=== PATIENT | female | born 1990 | race Caucasian/White ===

== ENCOUNTER → 2024-02-03 09:25 | Outpatient (REF) | payer OTHER, SELFPAY | LOC: PNTC 09:25 | PROVIDERS: ATTENDING PHYSICIAN Obstetrics & Gynecology | DX: O34.219 Maternal care for unspecified type scar from previous cesarean delivery (principal); Z87.59 Personal history of other complications of pregnancy, childbirth and the puerperium; O09.529 Supervision of elderly multigravida, unspecified trimester | CPT/HCPCS: 76801; 76813 ==

== ENCOUNTER → 2024-03-03 09:05 | Outpatient (REF) | payer OTHER, SELFPAY | LOC: PNTC 09:05 | PROVIDERS: ATTENDING PHYSICIAN Obstetrics & Gynecology | DX: O42.919 Preterm premature rupture of membranes, unspecified as to length of time between rupture and onset of labor, unspecified trimester (principal) | CPT/HCPCS: 76805; 76817; 93976 ==

== ENCOUNTER → 2024-03-31 09:14 | Outpatient (REF) | payer OTHER, SELFPAY | LOC: PNTC 09:14 | PROVIDERS: ATTENDING PHYSICIAN Obstetrics & Gynecology | DX: O34.219 Maternal care for unspecified type scar from previous cesarean delivery (principal); Z87.59 Personal history of other complications of pregnancy, childbirth and the puerperium; O09.529 Supervision of elderly multigravida, unspecified trimester; O34.218 Maternal care for other type scar from previous cesarean delivery | CPT/HCPCS: 76811; 76817; 93976 ==

== ENCOUNTER → 2024-04-28 07:03 | Outpatient (REF) | payer OTHER, SELFPAY | LOC: PNTC 07:03 | PROVIDERS: ATTENDING PHYSICIAN Obstetrics & Gynecology | DX: O42.919 Preterm premature rupture of membranes, unspecified as to length of time between rupture and onset of labor, unspecified trimester (principal); O09.529 Supervision of elderly multigravida, unspecified trimester; O09.519 Supervision of elderly primigravida, unspecified trimester | CPT/HCPCS: 76816; 76817 ==

== ENCOUNTER → 2024-05-26 06:53 | Outpatient (REF) | payer OTHER, SELFPAY | LOC: PNTC 06:53 | PROVIDERS: ATTENDING PHYSICIAN Obstetrics & Gynecology | DX: O09.529 Supervision of elderly multigravida, unspecified trimester (principal); O09.219 Supervision of pregnancy with history of pre-term labor, unspecified trimester | CPT/HCPCS: 76816 ==

== ENCOUNTER → 2024-06-25 08:27 | Outpatient (REF) | payer OTHER, SELFPAY ==
--- NOTE | 2024-06-24 14:12 | PN.DIAED06 ---
Meal Plan - Gestational
- Breakfast
Gestational Diabetes Meal Plan Name: 1800 calories
Breakfast - Total Carbohydrate (grams): 30
Breakfast - Starch Carbohydrate: 1
Breakfast - Fruit Carbohydrate: 0
Breakfast - Milk Carbohydrate: 1
Breakfast - Nonstarchy Vegetables: Yes
Breakfast - Meat/Protein: 1
Breakfast - Fat: 2
- Morning Snack
Morning Snack - Total Carbohydrate (grams): 30
Morning Snack - Starch Carbohydrate: 1
Morning Snack - Fruit Carbohydrate: 0
Morning Snack - Milk Carbohydrate: 1
Morning Snack - Nonstarchy Vegetables: Yes
Morning Snack - Meat/Protein: 0.5
Morning Snack - Fat: 0
- Lunch
Lunch - Total Carbohydrate (grams): 45
Lunch - Starch Carbohydrate: 2
Lunch - Fruit Carbohydrate: 1
Lunch - Milk Carbohydrate: 0
Lunch - Nonstarchy Vegetables: Yes
Lunch - Meat/Protein: 2
Lunch - Fat: 1
- Afternoon Snack
Afternoon Snack - Total Carbohydrate (grams): 30
Afternoon Snack - Starch Carbohydrate: 1
Afternoon Snack - Fruit Carbohydrate: 1
Afternoon Snack - Milk Carbohydrate: 0
Afternoon Snack - Nonstarchy Vegetables: Yes
Afternoon Snack - Meat/Protein: 1
Afternoon Snack - Fat: 0
- Dinner
Dinner - Total Carbohydrate (grams): 45
Dinner - Starch Carbohydrate: 2
Dinner - Fruit Carbohydrate: 0
Dinner - Milk Carbohydrate: 1
Dinner - Nonstarchy Vegetables: Yes
Dinner - Meat/Protein: 2
Dinner - Fat: 2
- Evening Snack
Evening Snack - Total Carbohydrate (grams): 30
Evening Snack - Starch Carbohydrate: 1
Evening Snack - Fruit Carbohydrate: 0
Evening Snack - Milk Carbohydrate: 1
Evening Snack - Nonstarchy Vegetables: Yes
Evening Snack - Meat/Protein: 1
Evening Snack - Fat: 1
--- NOTE | 2024-06-25 09:44 | PN.DE ---
Addendum entered by Yuliana Mayfield RN 06/25/24 10:09:
Genevieve shared her glucose values for the past week: Fasting 80-85, 2 hours post prandial 120-127. Discussed decreasing carbohydrate content per meal plan, increasing physical activity to help lower post prandial values. She admits to larger
portions of rice and pasta, will adjust per meal plan provided.
Original Note:
Diabetes Education
- -
06/25/2024 GESTATIONAL DIABETES CONSULTATION
Met with and Mrs. Muñoz today for medical nutrition therapy, she is 32 gestation with an EDC 08/07/2024. Has 3 children (1 GSD ), and a prior stillbirth.
She has had GSD with prior , no medications and baby was larger at 9 lbs with Cesarian delivery.
Explained glucose metabolism in body and what occurs during to cause increase blood sugar. Discussed importance of keeping BS well controlled to avoid complications to the baby during and after (macrosomia, hypoglycemia). Explained
to Genevieve that she is at increased risk of developing T2DM in the future.
Discussed macronutrients, provided with 1800cal GDM meal plan. Yesterday experienced symptoms of hypoglycemia (shakiness) due to lack of food until noon. Educated on importance of eating 3 meals and 3 snacks, spread out throughout the day.
Discussed physical activity, she is active with kids and occasionally walks. Encouraged walking after meals, especially if her post prandial glucose is elevated.
Educated to test 4 times a day: AM fasting and 1-2 hours postprandial for 3 meals. Expected results for FBS <95 mg/dL and 2 hr pp <120 mg/dL. Log sheet provided for her to record results, she will send a 4-day meal log with all her FBG and 2hr Post
prandial glucose numbers to this office for review. In addition, she will send all her glucose readings to [facility] every Saturday.
She [facility] a [facility] glucose meter with testing supplies online. She has checked glucose in the past, declined demonstration but provided verbal reinforcement on proper testing procedure. She will contact her insurance company to discuss
covered diabetic testing supplies, will contact us if she needs assistance with placing an order for a different brand. Educated her that testing supplies are not interchangeable, if she chooses to pay out of pocket she may consider [employer]
brand as well.
She verbalized understanding, and was encouraged to reach out with any questions and if should she require insulin.
== END ==
LOC: DES 08:27
PROVIDERS: ATTENDING PHYSICIAN Student in an Organized Health Care Education/Training Program
DX: O24.419 Gestational diabetes mellitus in pregnancy, unspecified control (principal)
CPT/HCPCS: 99078

== ENCOUNTER 2024-07-01 11:50 | Emergency (ER) | payer OTHER, SELFPAY ==
[2024-07-01 11:53] VITALS: BP 125/82
[2024-07-01 12:27] VITALS: BP 130/83
--- NOTE | 2024-07-01 12:54 | ED.GENMED ---
History of Present Illness
General
Chief Complaint: Breathing Problem
Source: patient and spouse
Exam Limitations: none
Time Seen by Provider: 07/01/24 12:35
Nursing documentation reviewed up to this point in time: agreed with
History of Present Illness
History of Present Illness:
Patient , currently 33 weeks , presents to ED secondary to 2-day history of worsening body ache, chills, cough, sore throat, body ache, and decreased appetite. Multiple family members recently had swab confirmed influenza. Denies
headache. Denies diarrhea. Denies abdominal pain. Patient states that she does feel the baby move. Today, however, patient felt worse shortness of breath with chest discomfort. Patient proceeded to take nebulizer treatments at home, with
significant improvement symptoms. At the time is getting ED, patient states that she has minimal discomfort. She is scheduled to see her [employer] physician in 2 days. Thus far, patient states that her has been uneventful.
Review of Systems
Review of Systems
Allergies reviewed?: Yes
All Other Systems: ROS reviewed and negative except as documented in HPI and ROS
Constitutional: Reports chills; Denies fever
EENT: Reports runny nose
Respiratory: Reports cough and trouble breathing
Cardiac: Reports no symptoms
ABD/GI: Denies abdominal pain, nausea, vomiting or diarrhea
: Reports no symptoms
Musculoskeletal: Reports muscle pain
Skin: Reports no symptoms
Neurological: Reports dizzy; Denies headache or weakness
Phy Exam
Physical Exam
Physical Exam:
Physical Exam
General: no apparent distress, not acutely ill. afebrile
Head: nc/at. eomi
Neck: supple. no meningeal signs. normal posterior pharynx
Heart: s1/s2 regular rate and rhythm, no murmur.
Lungs: no acute respiratory distress. clear bilaterally
Abdomen: normal bowel sounds. not tender.
Neuro: alert and oriented x 3. no focal neurological deficits
Skin: no rash
Psychiatric: well kept. interactive and cooperative
Extremities: no edema. no calf tenderness.
Course
Orders/Labs/Results
Orders:
Orders
07/01/24 11:59
EKG [Electrocardiogram (*1)] Urgent
Reason for Study: Shortness of Breath
07/01/24 12:00
EKG- Treatment ONCE
07/01/24 12:48
0.9% Sodium Chloride 1000 ml [Nss] 1,000 ml IV BOLUS
Albuterol Nebs [Ventolin Nebules] 2.5 mg INH R NOW STA
07/01/24 13:13
COVID-19 Antigen Urgent
Source: Nasal Swab
Complete Blood Count/With Diff Urgent
Comprehensive Metabolic Panel Urgent
Magnesium Urgent
Influenza A+B Rapid Molecular Urgent
CINDY Source: Nasal Swab
Specimen Description:
Abnormal Lab Results
07/01/24
13:13
Hgb 10.9 L g/dL
(12.0-16.0)
Hct 32.8 L %
(37.0-47.0)
MCV 77.9 L fL
(81.0-99.0)
MCH 25.9 L pg
(27.0-31.0)
MPV 11.4 H fL
(7.4-10.4)
Absolute Lymphs (auto) 0.4 L 10^3/uL
(1.2-3.4)
Neutrophils % 82.4 H %
(42.2-75.2)
Lymphocytes % 5.7 L %
(20.5-51.1)
Chloride 108 H mmol/L
(98-107)
Carbon Dioxide 20 L mmol/L
(22-30)
BUN 5 L mg/dl
(7-17)
Creatinine 0.4 L mg/dL
(0.6-1.0)
Total Protein 6.2 L g/dl
(6.3-8.2)
Albumin 3.4 L g/dl
(3.5-5.0)
SARS-CoV-2 Antigen Positive A
(Negative)
07/01/24 13:13
07/01/24 13:13
Vital Signs
Initial and Last Documented VS:
Initial Vital Signs
Temp Pulse Resp BP Pulse Ox
99.3 F 128 18 125/82 97
07/01/24 11:53 07/01/24 11:53 07/01/24 11:53 07/01/24 11:53 07/01/24 11:53
Last Documented Vital Signs
Temp Pulse Resp BP Pulse Ox
99.3 F 105 18 115/74 96
07/01/24 11:53 07/01/24 16:54 07/01/24 16:54 07/01/24 16:54 07/01/24 16:54
MDM/Problems Addressed
MDM/Problems Addressed:
History and exam consistent with symptoms secondary to COVID-19. Otherwise, patient remains afebrile, hemodynamically stable, without any acute respiratory distress. Patient given nebulizer treatment along with IV fluids, with continual
improvement in symptoms.
Patient will be monitored by L&D, with monitoring, prior to discharge.
*Critical Care Note
Total Time (30-74mins, 75-104mins- exclusive of procedures): Not Applicable
ED Attending Note
-
Portions of this chart may have been created with voice recognition software.� Occasional wrong word or��sound alike� substitutions may have occurred due to the inherent limitations of voice recognition software.
Discharge Plan
Departure
Patient Disposition: Home (Routine Discharge)
Date of Disposition: 07/01/24
Time of Disposition: 16:36
Patient with high blood pressure during this ER visit?: Yes
Discharge Problem:
COVID-19
Instructions: COVID-19 - ED discharge instructions
Prescriptions:
No Action
vit-iron fum-folic ac [ Tablet] 28 mg iron- 800 mcg Tablet
1 tab PO DAILY
acetaminophen 325 mg Tablet
650 mg PO Q4HPRN PRN (Reason: mild pain) Qty: 0 0RF
ibuprofen 600 mg Tablet
600 mg PO Q6HPRN PRN (Reason: cramps) Qty: 0 0RF
simethicone 80 mg Tablet,Chewable
80 mg PO TIDPRN PRN (Reason: flatulence) Qty: 0 0RF
Referrals:
Chris Clement, [Family Provider] -
Activity Restrictions/Additional Instructions:
As discussed, please follow-up with your primary care physician and/or [employer] physician for continual evaluation and treatment. Please consider returning to ED with worsening symptoms.
Interventions
Interventions:
*Risk Screen - Suicide Last Done: 07/01/24 11:53
*General Assessment Last Done: 07/01/24 13:02
*Neglect/Abuse Screening Last Done: 07/01/24 11:53
*ED- Fall Risk Assessment Last Done: 07/01/24 13:02
*ED COVID-19 Vaccine History Last Done: 07/01/24 13:02
*Nursing Disposition Last Done: 07/01/24 16:55
ED- Cardiac Assessment Last Done: 07/01/24 13:02
ED- Pulmonary Assessment Last Done: 07/01/24 13:02
Discharge Date and Time
Discharge Date/Time: 07/01/24 17:02
Print Language: FRENCH
[2024-07-01 13:00] VITALS: BP 112/75
[2024-07-01 13:01] VITALS: BMI 31.8
[2024-07-01] MEDS: NSS 1000 IV (13:17)
[2024-07-01] MEDS: VENTOLIN NEBULES 2.5 MG INH (13:28)
[2024-07-01 13:35] LABS: COVID-19 Antigen Positive (Negative)
[2024-07-01 13:47] LABS: ALT (SGPT) 14 U/L (0-35); AST (SGOT) 31 U/L (14-36); Albumin 3.4 g/dl (3.5-5.0); Alkaline Phosphatase 119 U/L (38-126); Blood Urea Nitrogen 5 mg/dl (7-17); Calcium 8.5 mg/dl (8.4-10.2); Carbon Dioxide 20 mmol/L (22-30); Chloride 108 mmol/L (98-107); Estimated Creatinine Clearance 122 ml/min; Glucose 93 mg/dl (70-99); Potassium 3.7 mmol/L (3.5-5.1); Sodium 135 mmol/L (135-145); Total Bilirubin 0.4 mg/dl (0.2-1.3); Total Protein 6.2 g/dl (6.3-8.2); eGFR > 60.00
[2024-07-01 13:53] LABS: % Basophils 0.3 % (0-2); % Immature Granulocytes 0.3 % (0-0.5); % Lymphocytes 5.7 % (20.5-51.1); % Monocytes 9.3 % (1.7-9.3); % Neutrophils 82.4 % (42.2-75.2); Absolute Eosinophils 0.1 10^3/uL (0-0.7); Absolute Lymphocytes 0.4 10^3/uL (1.2-3.4); Absolute Monocytes 0.6 10^3/uL (0.1-0.6); Absolute Neutrophils 5.2 10^3/uL (1.4-6.5); Hematocrit 32.8 % (37.0-47.0); Hemoglobin 10.9 g/dL (12.0-16.0); Mean Corp Hgb Conc. 33.2 g/dL (33.0-37.0); Mean Corpuscular Hgb 25.9 pg (27.0-31.0); Mean Corpuscular Volume 77.9 fL (81.0-99.0); Mean Platelet Volume 11.4 fL (7.4-10.4); Nucleated Red Blood Cells % 0 %; Platelet Count 176 10^3/uL (130-400); Red Blood Cell Count 4.21 10^6/uL (4.20-5.40); Red Cell Dist. Width 13.1 % (11.5-14.5); White Blood Cell Count 6.4 10^3/uL (4.8-10.8)
[2024-07-01 16:54] VITALS: BP 115/74
== END 2024-07-01 17:02 | disposition home or self-care (01) ==
LOC: EMR 11:50
PROVIDERS: EMERGENCY PHYSICIAN Emergency Medicine; FAMILY PHYSICIAN Family Medicine
DX: O98.513 Other viral diseases complicating pregnancy, third trimester (principal); U07.1 COVID-19; Z3A.33 33 weeks gestation of pregnancy
CPT/HCPCS: 99283; 94640; 96360; 80053; 83735; 85025; 87502; 87811; 93005

== ENCOUNTER → 2024-07-07 06:54 | Outpatient (REF) | payer OTHER, SELFPAY | LOC: PNTC 06:54 | PROVIDERS: ATTENDING PHYSICIAN Obstetrics & Gynecology | DX: O09.529 Supervision of elderly multigravida, unspecified trimester (principal); O42.119 Preterm premature rupture of membranes, onset of labor more than 24 hours following rupture, unspecified trimester; Z36.86 Encounter for antenatal screening for cervical length | CPT/HCPCS: 76816 ==

== ENCOUNTER 2024-07-18 19:30 | Observation (INO) | payer OTHER, SELFPAY ==
[2024-07-18 19:53] VITALS: BP 137/85; BMI 33.8
[2024-07-18 20:05] LABS: Glucose - Point of Care 98 mg/dl (70-99)
[2024-07-18] MEDS: LR 1000 IV ×2 (20:05→21:40)
== END 2024-07-19 02:53 | disposition home or self-care (01) ==
LOC: LDRP 19:30
PROVIDERS: ADMITTING PHYSICIAN Student in an Organized Health Care Education/Training Program
DX: O47.03 False labor before 37 completed weeks of gestation, third trimester (principal); O46.93 Antepartum hemorrhage, unspecified, third trimester; Z3A.36 36 weeks gestation of pregnancy; O24.410 Gestational diabetes mellitus in pregnancy, diet controlled; O09.293 Supervision of pregnancy with other poor reproductive or obstetric history, third trimester; O09.523 Supervision of elderly multigravida, third trimester; O34.219 Maternal care for unspecified type scar from previous cesarean delivery; N96 Recurrent pregnancy loss; Z63.79 Other stressful life events affecting family and household; Z87.51 Personal history of pre-term labor; Z63.4 Disappearance and death of family member
CPT/HCPCS: 59899; 82962; G0378

== ENCOUNTER → 2024-08-04 07:03 | Outpatient (REF) | payer OTHER, SELFPAY | LOC: PNTC 07:03 | PROVIDERS: ATTENDING PHYSICIAN Obstetrics & Gynecology | DX: O42.90 Premature rupture of membranes, unspecified as to length of time between rupture and onset of labor, unspecified weeks of gestation (principal); O09.529 Supervision of elderly multigravida, unspecified trimester; O26.879 Cervical shortening, unspecified trimester | CPT/HCPCS: 76816 ==

== ENCOUNTER 2024-08-05 06:28 | Inpatient (IN) | payer OTHER, SELFPAY ==
[2024-08-05 06:38] VITALS: BMI 34.0
[2024-08-05 06:54] LABS: Glucose - Point of Care 116 mg/dl (70-99)
[2024-08-05 07:01] VITALS: BP 137/87
[2024-08-05 07:13] LABS: Hematocrit 34.1 % (37.0-47.0); Hemoglobin 11.1 g/dL (12.0-16.0); Mean Corp Hgb Conc. 32.6 g/dL (33.0-37.0); Mean Corpuscular Hgb 24.8 pg (27.0-31.0); Mean Corpuscular Volume 76.3 fL (81.0-99.0); Platelet Count 155 10^3/uL (130-400); Red Blood Cell Count 4.47 10^6/uL (4.20-5.40); Red Cell Dist. Width 14.1 % (11.5-14.5); White Blood Cell Count 9.1 10^3/uL (4.8-10.8)
[2024-08-05] MEDS: TYLENOL 1000 MG PO (07:14)
[2024-08-05] MEDS: BICITRA 30 ML PO (07:14)
[2024-08-05] MEDS: TRANEXAMIC ACID IV (10:18)
[2024-08-05] MEDS: TRANEXAMIC ACID 100 IV (11:36)
[2024-08-05] MEDS: TORADOL 15 MG IV ×2 (16:33→22:52)
--- NOTE | 2024-08-05 16:38 | DOWNTIME ---
There was a [employer] Downtime on 08/05/2024 from 1230 to 08/05/2024 at 1550. Downtime documentation of patient's care, including medication administrations, has been reconciled in the electronic record per guidelines. Refer to the
patient's paper chart under the miscellaneous tab to see printed paper medication records and downtime forms.
[2024-08-05] MEDS: ZOFRAN 4 MG IV (16:44)
[2024-08-05] MEDS: FLUSH (NSS) 3 FLUSH IV (22:54)
[2024-08-06 04:19] LABS: Hematocrit 27.5 % (37.0-47.0); Hemoglobin 9.1 g/dL (12.0-16.0); Mean Corp Hgb Conc. 33.1 g/dL (33.0-37.0); Mean Corpuscular Hgb 25.1 pg (27.0-31.0); Mean Platelet Volume 12.6 fL (7.4-10.4); Platelet Count 152 10^3/uL (130-400); Red Blood Cell Count 3.62 10^6/uL (4.20-5.40); Red Cell Dist. Width 14.2 % (11.5-14.5); White Blood Cell Count 12.9 10^3/uL (4.8-10.8)
[2024-08-06] MEDS: TORADOL 15 MG IV ×2 (05:03→11:28)
[2024-08-06] MEDS: FLUSH (NSS) 3 FLUSH IV (05:05)
--- NOTE | 2024-08-06 08:15 | W.PN.ANS.POP ---
Anesthesia Post Operative
- Anesthesia Post Op Note
Vital Signs Stable-See Nursing Note: Yes
Airway Patent: Yes
Adequate Pain Control: Yes
Change in Mental Status: No
Current Postoperative Nausea & Vomiting: No
Anesthesia Complications: No
General Anesthetic Recall: No
Unplanned Admission: No
Post Op Hydration Adequate: Yes
[2024-08-06] MEDS: SENOKOT-S 1 TABLET PO (08:24)
[2024-08-06] MEDS: PRENATAL PLUS 1 TABLET PO (08:24)
[2024-08-06] MEDS: MYLICON 80 MG PO (08:25)
[2024-08-06] MEDS: FEOSOL 325 MG PO (11:28)
[2024-08-06] MEDS: MOTRIN 600 MG PO ×2 (17:10→23:53)
[2024-08-06] MEDS: TYLENOL 650 MG PO ×2 (17:13→23:53)
[2024-08-07] MEDS: TYLENOL 650 MG PO ×2 (05:56→13:13)
[2024-08-07] MEDS: MOTRIN 600 MG PO ×2 (05:56→13:13)
[2024-08-07] MEDS: PRENATAL PLUS 1 TABLET PO (08:49)
[2024-08-07] MEDS: SENOKOT-S 1 TABLET PO (08:49)
[2024-08-07] MEDS: FEOSOL 325 MG PO (08:49)
[2024-08-07 12:15] LABS: Syphilis/T. pallidum Ab Reflex Negative (Negative)
--- NOTE | 2024-08-07 12:24 | W.DS.TRANS ---
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
-
Discharge Instructions:
Discharge Diagnosis/Procedures rcs
Instructions:
Stand-Alone Forms: LDRP Delivery
Changes to Home Medications: No
Discharge Medications:
DC Medications w/original date entered in [employer]
vitamin-ferrous fumarate 28 mg iron-folic acid 800 mcg tablet ( Tablet) 1 tab PO DAILY Supplement 08/11/22
ibuprofen 600 mg tablet 600 mg PO Q6HPRN PRN cramps #90 tabs 08/07/24
Home Medication Changes
Pending Results: No
Total time spent discharging patient (in min): 15
== END 2024-08-07 14:21 | disposition home or self-care (01) | DRG 785 ==
LOC: LDRP 06:28
PROVIDERS: ADMITTING PHYSICIAN Obstetrics & Gynecology; FAMILY PHYSICIAN Family Medicine
PROC: 10D00Z1 Extraction of Products of Conception, Low, Open Approach (ICD-10-PCS; 2024-08-05)
PROC: 0UT70ZZ Resection of Bilateral Fallopian Tubes, Open Approach (ICD-10-PCS; 2024-08-05)
DX: O42.92 Full-term premature rupture of membranes, unspecified as to length of time between rupture and onset of labor (principal); O34.211 Maternal care for low transverse scar from previous cesarean delivery; Z3A.38 38 weeks gestation of pregnancy; Z37.0 Single live birth; Z30.2 Encounter for sterilization; J45.909 Unspecified asthma, uncomplicated; O99.52 Diseases of the respiratory system complicating childbirth; O24.420 Gestational diabetes mellitus in childbirth, diet controlled; O26.23 Pregnancy care for patient with recurrent pregnancy loss, third trimester; O90.81 Anemia of the puerperium; D64.9 Anemia, unspecified
CPT/HCPCS: 88302; 88307; 58605; 82962; 85027; 86780; 86850; 86900; 86901